=== PATIENT | female | born 1975 | race Caucasian/White ===

== ENCOUNTER 2016-07-10 00:39 | Emergency (ER) | payer OTHER ==
--- NOTE | 2016-07-10 03:03 | ED NURSING NOTES ---
Clinical Report - Nurses [facility] [address] [place] [address] 07/10/2016 0:38 Patient: BECKI SHIN TRIAGE Triage time 00:43. Acuity: LEVEL 2. Chief Complaint: CHEST PAIN. 00:54. Alert. SEPSIS SCREEN: Sepsis Screen. Negative (no infection suspected/documented). --00:59 Avel Rodriguez R.N. 00:43 07/10/16. BP: 146/67. HR: 82. RR: 16. O2 saturation: 100%. Temp: 98.3 F. Pain level now: 04/09. --00:59 Avel Rodriguez R.N. Weight: 49.8 kg stated. Height/Length: 64.5 inches Per Patient. BMI: 18.6. --00:47 Avel Rodriguez R.N. Medications Estradiol Oral (Tablet 2 mg) 1 tablet, daily. --00:44 Avel Rodriguez R.N. Loratadine Oral. --00:45 Avel Rodriguez R.N. Medication/allergy information source: the patient. --00:59 Avel Rodriguez R.N. Allergies No Known Drug Allergy. --00:45 Avel Rodriguez R.N. History Arrived by private vehicle. Historian: patient. Accompanied by spouse. Primary physician ([facility]). This started today. Onset. (about 0800). 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 PAST MEDICAL HX: Immunizations: up-to-date. Last normal menstrual period- 5-6 years ago. The patient has had a hysterectomy. SOCIAL HX: Never smoker. No alcohol use or drug use. No infectious disease exposure. ABUSE ASSESSMENT: No report of abuse. FALL RISK ASSESSMENT: Fall risk assessment completed. No fall risk identified. NUTRITIONAL RISK ASSESSMENT: The nutritional risk assessment revealed no deficiencies. FUNCTIONAL ASSESSMENT: Functional assessment: no impairments noted. LEARNING NEEDS ASSESSMENT: The learning needs assessment revealed no barriers. SKIN INTEGRITY ASSESSMENT: Skin integrity risk assessment completed. No skin integrity risk identified. --00:59 Avel Rodriguez R.N. PROBLEMS: SVT. UTI - Urinary Tract Infection. --00:46 Avel Rodriguez R.N. ADDITIONAL SURGERIES: Cardiac ablation . Hysterectomy. --00:46 Avel Rodriguez R.N. Interventions ID band on patient. To treatment room. --00:59 Avel Rodriguez R.N. PHYSICAL ASSESSMENT 00:44. Ambulatory to room. Patient gowned. GENERAL / NEURO / PSYCH: Alert. Oriented X 4. HEENT: Mucous membranes are pink. RESPIRATORY: Respirations not labored. SKIN: Skin is warm and dry. Normal skin turgor. --00:59 Avel Rodriguez R.N. NURSING PROGRESS NOTES 00:46. Head of bed elevated. Two patient identifiers checked. Call light placed in reach. Bed placed in lowest position. Brakes of bed on. Patient ready for evaluation- chart flagged. --00:49 Avel Rodriguez R.N. 00:49 07/10/2016 Aspirin PO 325 mg given. Allergies verified and confirmed 5 rights. --00:50 Avel Rodriguez R.N. 00:51. Oxygen administered by nasal cannula at 2 liters. --00:51 Avel Rodriguez R.N. 00:52. EKG time: (0052). EKG was performed by a tech and shown to the ED physician. --00:53 Avel Rodriguez R.N. 00:54 07/10/2016 Site #1 started via IV in the right antecubital space with an 20g angiocath, with aseptic technique and good blood return; one attempt. Blood drawn: rainbow set. Labeled in the presence of the patient and sent to the lab. Saline lock flushed with 10 mL saline. --00:58 Avel Rodriguez R.N. 01:28. Portable chest x-ray performed. --01:29 Avel Rodriguez R.N. 02:14 07/10/16. BP: 102/70. HR: 65. RR: 24. O2 saturation: 100%. Pain level now: 01/07. --02:16 Avel Rodriguez R.N. EKG time: (0302 AM). EKG was ordered, performed by a tech and shown to the ED physician. ( Repeat). --03:06 Aden Cardona R.N. 03:33. The patient is calm and resting quietly. RESPIRATORY: No respiratory distress. SKIN: Skin is warm and dry. Skin color within normal limits. --03:58 Avel Rodriguez R.N. DISPOSITION / DISCHARGE 03:31 07/10/2016 Site #1 removed upon discharge. Catheter intact. Bandage applied. --03:32 Avel Rodriguez R.N. Departure time: 03:36. Condition at departure: stable. No learning barriers present. Discharge instructions provided and reviewed with the patient and spouse. Patient and spouse verbalized understanding. Written instructions provided in Latvian. The patient was discharged home and accompanied by spouse. She left the Emergency Department ambulatory and via private vehicle. Spouse driving. FALL RISK ASSESSMENT: Fall risk assessment completed. No fall risk identified. --03:57 Avel Rodriguez R.N. 03:32 07/10/16. BP: 114/70. HR: 65. RR: 18. O2 saturation: 98% on room air. Pain level now: 09/07. --03:57 Avel Rodriguez R.N. Locked/Released at 07/10/2016 3:59 by Avel Rodriguez R.N.
--- NOTE | 2016-07-10 03:03 | ED ORDER SUMMARY ---
..... Patient: BECKI SHIN OrderSheet [facility] VisitID: [id number] [address] [place] [address] 41y, F Registration Date/Time: 07/10/2016 ORDER SHEET Weight: 49.8 kg (stated) Allergies: No Known Drug Allergy GENERAL ORDERS: Chest 1V Urgent (00:49 07/10/2016 JQuivey R.N. per protocol) (Ack 0:51 LMuller) (1:24 LMuller) Aircraft Instrument Engineer (Continuous) (CP) (00:50 07/10/2016 JQuivey R.N. per protocol) (Ack 0:51 LMuller) (0:55 JQuivey R.N.) Cardiac Panel Stat (00:50 07/10/2016 JQuivey R.N. per protocol) (Ack 0:51 LMuller) (0:58 JQuivey R.N.) UA-Culture if indicated Urgent (00:50 07/10/2016 JQuivey R.N. per protocol) (Ack 0:51 LMuller) Oxygen (2 L/min) (NC) (00:50 07/10/2016 JQuivey R.N. per protocol) (Ack 0:51 LMuller) (0:55 JQuivey R.N.) EKG - ER Stat (00:50 07/10/2016 JQuivey R.N. per protocol) (Ack 0:51 LMuller) (0:52 LMuller) Amylase Urgent (01:14 07/10/2016 Vivien RICHARDSON) (1:26 LMuller) Lipase Urgent (01:14 07/10/2016 Vivien RICHARDSON) (1:26 LMuller) D-Dimer Urgent (02:35 07/10/2016 Vivien RICHARDSON) (2:37 LMuller) MEDICATION ORDERS: Aspirin PO 325 mg (NOW) (00:50 07/10/2016 JQuivey R.N. per protocol) (0:50 JQuivey R.N.) IV FLUIDS: IV Saline Lock (00:50 07/10/2016 JQuivey R.N. per protocol) (0:58 JQuivey R.N.) ORDER SHEET NOTES: [Electronically signed by Avel Rodriguez R.N. (03:59 07/10/2016)] [Electronically signed by Rocky Piper MD (18:48 07/13/2016)] [Electronically locked/signed by Avel Rodriguez R.N. (03:59 07/10/2016)]
--- NOTE | 2016-07-10 03:03 | ED ORDER SUMMARY ---
..... Patient: BECKI SHIN OrderSheet [facility] VisitID: [id number] [address] [place] [address] 41y, F Registration Date/Time: 07/10/2016 ORDER SHEET Weight: 49.8 kg (stated) Allergies: No Known Drug Allergy GENERAL ORDERS: Chest 1V Urgent (00:49 07/10/2016 JQuivey R.N. 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 per protocol) (Ack 0:51 LMuller) (0:55 JQuivey R.N.) Cardiac Panel Stat (00:50 07/10/2016 JQuivey R.N. per protocol) (Ack 0:51 LMuller) (0:58 JQuivey R.N.) UA-Culture if indicated Urgent (00:50 07/10/2016 JQuivey R.N. per protocol) (Ack 0:51 LMuller) Oxygen (2 L/min) (NC) (00:50 07/10/2016 JQuivey R.N. per protocol) (Ack 0:51 LMuller) (0:55 JQuivey R.N.) EKG - ER Stat (00:50 07/10/2016 JQuivey R.N. per protocol) (Ack 0:51 LMuller) (0:52 LMuller) Amylase Urgent (01:14 07/10/2016 Vivien RICHARDSON) (1:26 LMuller) Lipase Urgent (01:14 07/10/2016 Vivien RICHARDSON) (1:26 LMuller) D-Dimer Urgent (02:35 07/10/2016 Vivien RICHARDSON) (2:37 LMuller) MEDICATION ORDERS: Aspirin PO 325 mg (NOW) (00:50 07/10/2016 JQuivey R.N. per protocol) (0:50 JQuivey R.N.) IV FLUIDS: IV Saline Lock (00:50 07/10/2016 JQuivey R.N. per protocol) (0:58 JQuivey R.N.) ORDER SHEET NOTES: [Electronically signed by Avel Rodriguez R.N. (03:59 07/10/2016)] [Electronically signed by Rocky Piper MD (18:48 07/13/2016)] [Electronically locked/signed by Avel Rodriguez R.N. (03:59 07/10/2016)]
--- NOTE | 2016-07-10 03:03 | ED CLINICAL REPORT ---
Clinical Report - Physicians/Mid Levels [facility] [address] [place] [address] 07/10/2016 0:38 Patient: BECKI SHIN Time Seen: 01:06. Arrived- By private vehicle. Historian- patient. HISTORY OF PRESENT ILLNESS Chief Complaint: CHEST PAIN. At its maximum, severity described as 5 / 10. When seen in the E.D., severity described as 3 / 10. This started yesterday at about 8 AM and is still present. It was abrupt in onset and has been constant and waxing/waning. Onset during light activity. It is described as dull, sharp and "pain" and it is described as located in the central chest area and radiating to the neck and upper back. The patient has had nausea. No vomiting or diaphoresis. Similar symptoms previously: None. REVIEW OF SYSTEMS No chills, fever, muscle aches, sweats or calf pain. No pedal edema, constipation or urinary problems. She has had a mild nonproductive cough. She has had palpitations and mild, intermittent abdominal pain. The pain is described as located in the epigastrium and radiating to the back. She has had diarrhea (several days ago). she reports that mild elevations of her lipase have been noted in the past. All systems otherwise negative, except as recorded above. PAST HISTORY PCP - [facility] in [place]. SOCIAL HISTORY Never smoker. No alcohol use or drug use. Is a local resident. Has good social support. FAMILY HISTORY Heart disease in grandparent; aortic aneurysm in first-degree relative (father); cancer in first-degree relative (mother) and grandparent. ADDITIONAL NOTES The nursing notes have been reviewed. PHYSICAL EXAM Vital Signs: 07/10/2016 00:43 BP: 146/67. HR: 82. RR: 16. O2 saturation: 100%. Temp: 98.3 F. Pain level now: 10/10. Appearance: Alert. Eyes: Pupils equal, round and reactive to light. ENT: Pharynx normal. Neck: Normal inspection. Neck supple. CVS: Normal heart rate and rhythm. Heart sounds normal. Respiratory: No respiratory distress. Chest pain reproducible with palpation of the costochondral junction and with deep breathing. Breath sounds normal. Abdomen: Soft and nontender. Bowel sounds normal. No organomegaly. No mass. Back: Normal external inspection. No CVA tenderness. Skin: Skin warm and dry. Normal skin color. Normal skin turgor. Extremities: Extremities exhibit normal ROM. No calf tenderness. No lower extremity edema. LABS, X-RAYS, AND EKG EKG: Rate: 53. Ectopic beats. Premature atrial contractions. The study has been independently viewed by me. Chest X-ray: No acute disease. The X-rays were independently viewed by me. Laboratory Tests: CBC w Diff: (KACEY: 07/10/2016 00:50) ( MsgRcvd 07/10/2016 01:06) Final results Test Result Flag Units (Reference) WHITE BLOOD COUNT 6.7 K/uL (4.5-11.5) RED BLOOD COUNT 4.66 M/uL (4.00-5.20) HEMOGLOBIN 14.0 gm/dL (12.0-16.0) HEMATOCRIT 42.2 % (36.0-46.0) MEAN CELL VOLUME 91 fL (80-100) MEAN CORPUSCULAR HGB 30 pg (26-34) MEAN CORPUSCULAR HGB CONC 33 g/dL (31-37) RED CELL DISTRIBUTION WIDTH 12.1 % (11.6-14.8) PLATELET COUNT 201 K/uL (150-400) NEUTROPHIL % 53.6 % (50-75) LYMPH % 35.5 % (25-40) MONO % 7.0 % (3-14) EOSINOPHIL % 3.5 % (0-4) BASOPHIL % 0.4 % (0-2) [id number]: (KACEY: 07/10/2016 00:50) ( MsgRcvd 07/10/2016 02:45) Final results Test Result Flag Units (Reference) D-DIMER QUANTITATIVE 0.33 ug/mLFEU (0.27-0.52) The primary value of this quantitative assay relates toits negative predictive value (i.e. exclusion) of pulmonaryembolism/deep vein thrombosis/DIC.Elevated levels of d-dimer may also occur with:, age, cancer, inflammation, liver disease,post-op, infection, hematoma, coronary disease, peripheralarteriopathy, bleeding disorders and thrombolytic treatment.Results should be correlated with other clinical andradiological data.Testing Methodology: Latex Immunoassay Lipase: (KACEY: 07/10/2016 00:50) ( [facility] [place] 07/10/2016 01:26) Final results Test Result Flag Units (Reference) LIPASE 475 H U/L (73-393) AMYLASE 98 U/L (25-115) CHEM 13 PANEL: (KACEY: 07/10/2016 00:50) ( [facility] [place] 07/10/2016 01:27) Final results Test Result Flag Units (Reference) GLUCOSE 103 mg/dL (70-110) BUN 14 mg/dL (7-18) CREATININE 0.9 mg/dL (0.6-1.3) Estimated GFR >60 mL/min Estimated GFR- >60 mL/min Note: Persistent reduction over 3 months in eGFR<60 mL/min/1.73 m2 defines CKD. Patients with eGFR values>=60 mL/min/1.73 m2 may also have CKD if evidence ofpersistent proteinuria. Additional information may be foundat www.kidney.org. SODIUM 143 mmol/L (136-145) POTASSIUM 3.4 L mmol/L (3.5-5.1) CHLORIDE 105 mmol/L (98-107) CARBON DIOXIDE 30 mmol/L (21-32) CALCIUM 9.0 mg/dL (8.5-10.1) TOTAL PROTEIN 6.5 g/dL (6.4-8.2) ALBUMIN 3.4 g/dL (3.3-5.0) BILIRUBIN, TOTAL 0.5 mg/dL (0.0-1.0) ALKALINE PHOSPHATASE 60 U/L (46-116) AST (SGOT) 15 U/L (15-37) ALT (SGPT) 21 U/L (12-78) MAGNESIUM 1.7 L mg/dL (1.8-2.4) CPK 51 U/L (24-260) TROPONIN I <0.05 ng/mL (0.00-1.5) TROPONIN REFERENCE RANGE:<0.1 NEGATIVE0.1-1.5 INDETERMINANT>1.5 POSITIVE . PROGRESS AND PROCEDURES Course of Care: Patient is stable. Patient/family counseled. Old medical records reviewed. Disposition: Discharged. Condition: stable. CLINICAL IMPRESSION Atypical chest pain Possible costochondritis INSTRUCTIONS No strenuous activity. Warnings: Further evaluation is necessary. GENERAL WARNINGS: Return or contact your physician immediately if your condition worsens or changes unexpectedly, if not improving as expected, or if other problems arise. Your Current Medications: CONTINUE TAKING THE FOLLOWING MEDICATIONS: Estradiol Oral : Tablet 2 mg, 1 tablet daily. Loratadine Oral. Follow-up: Follow up with your doctor tomorrow. Call for the next available appointment. Understanding of the discharge instructions verbalized by patient. (Electronically signed by Rocky Piper MD 07/13/2016 18:48)
--- NOTE | 2016-07-10 03:03 | ED NURSING NOTES ---
Clinical Report - Nurses [facility] [address] [place] [address] 07/10/2016 0:38 Patient: BECKI SHIN TRIAGE Triage time 00:43. Acuity: LEVEL 2. Chief Complaint: CHEST PAIN. 00:54. Alert. SEPSIS SCREEN: Sepsis Screen. Negative (no infection suspected/documented). --00:59 Avel Rodriguez R.N. 00:43 07/10/16. BP: 146/67. HR: 82. RR: 16. O2 saturation: 100%. Temp: 98.3 F. Pain level now: 04/09. --00:59 Avel Rodriguez R.N. Weight: 49.8 kg stated. Height/Length: 64.5 inches Per Patient. BMI: 18.6. --00:47 Avel Rodriguez R.N. Medications Estradiol Oral (Tablet 2 mg) 1 tablet, daily. --00:44 Avel Rodriguez R.N. Loratadine Oral. --00:45 Avel Rodriguez R.N. Medication/allergy information source: the patient. --00:59 Avel Rodriguez R.N. Allergies No Known Drug Allergy. --00:45 Avel Rodriguez R.N. History Arrived by private vehicle. Historian: patient. Accompanied by spouse. Primary physician ([facility]). This started today. Onset. (about 0800). 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 PAST MEDICAL HX: Immunizations: up-to-date. Last normal menstrual period- 5-6 years ago. The patient has had a hysterectomy. SOCIAL HX: Never smoker. No alcohol use or drug use. No infectious disease exposure. ABUSE ASSESSMENT: No report of abuse. FALL RISK ASSESSMENT: Fall risk assessment completed. No fall risk identified. NUTRITIONAL RISK ASSESSMENT: The nutritional risk assessment revealed no deficiencies. FUNCTIONAL ASSESSMENT: Functional assessment: no impairments noted. LEARNING NEEDS ASSESSMENT: The learning needs assessment revealed no barriers. SKIN INTEGRITY ASSESSMENT: Skin integrity risk assessment completed. No skin integrity risk identified. --00:59 Avel Rodriguez R.N. PROBLEMS: SVT. UTI - Urinary Tract Infection. --00:46 Avel Rodriguez R.N. ADDITIONAL SURGERIES: Cardiac ablation . Hysterectomy. --00:46 Avel Rodriguez R.N. Interventions ID band on patient. To treatment room. --00:59 Avel Rodriguez R.N. PHYSICAL ASSESSMENT 00:44. Ambulatory to room. Patient gowned. GENERAL / NEURO / PSYCH: Alert. Oriented X 4. HEENT: Mucous membranes are pink. RESPIRATORY: Respirations not labored. SKIN: Skin is warm and dry. Normal skin turgor. --00:59 Avel Rodriguez R.N. NURSING PROGRESS NOTES 00:46. Head of bed elevated. Two patient identifiers checked. Call light placed in reach. Bed placed in lowest position. Brakes of bed on. Patient ready for evaluation- chart flagged. --00:49 Avel Rodriguez R.N. 00:49 07/10/2016 Aspirin PO 325 mg given. Allergies verified and confirmed 5 rights. --00:50 Avel Rodriguez R.N. 00:51. Oxygen administered by nasal cannula at 2 liters. --00:51 Avel Rodriguez R.N. 00:52. EKG time: (0052). EKG was performed by a tech and shown to the ED physician. --00:53 Avel Rodriguez R.N. 00:54 07/10/2016 Site #1 started via IV in the right antecubital space with an 20g angiocath, with aseptic technique and good blood return; one attempt. Blood drawn: rainbow set. Labeled in the presence of the patient and sent to the lab. Saline lock flushed with 10 mL saline. --00:58 Avel Rodriguez R.N. 01:28. Portable chest x-ray performed. --01:29 Avel Rodriguez R.N. 02:14 07/10/16. BP: 102/70. HR: 65. RR: 24. O2 saturation: 100%. Pain level now: 01/07. --02:16 Avel Rodriguez R.N. EKG time: (0302 AM). EKG was ordered, performed by a tech and shown to the ED physician. ( Repeat). --03:06 Aden Cardona R.N. 03:33. The patient is calm and resting quietly. RESPIRATORY: No respiratory distress. SKIN: Skin is warm and dry. Skin color within normal limits. --03:58 Avel Rodriguez R.N. DISPOSITION / DISCHARGE 03:31 07/10/2016 Site #1 removed upon discharge. Catheter intact. Bandage applied. --03:32 Avel Rodriguez R.N. Departure time: 03:36. Condition at departure: stable. No learning barriers present. Discharge instructions provided and reviewed with the patient and spouse. Patient and spouse verbalized understanding. Written instructions provided in Azeri. The patient was discharged home and accompanied by spouse. She left the Emergency Department ambulatory and via private vehicle. Spouse driving. FALL RISK ASSESSMENT: Fall risk assessment completed. No fall risk identified. --03:57 Avel Rodriguez R.N. 03:32 07/10/16. BP: 114/70. HR: 65. RR: 18. O2 saturation: 98% on room air. Pain level now: 09/07. --03:57 Avel Rodriguez R.N. Locked/Released at 07/10/2016 3:59 by Avel Rodriguez R.N.
--- NOTE | 2016-07-10 03:03 | ED CLINICAL REPORT ---
Clinical Report - Physicians/Mid Levels [facility] [address] [place] [address] 07/10/2016 0:38 Patient: BECKI SHIN Time Seen: 01:06. Arrived- By private vehicle. Historian- patient. HISTORY OF PRESENT ILLNESS Chief Complaint: CHEST PAIN. At its maximum, severity described as 5 / 10. When seen in the E.D., severity described as 3 / 10. This started yesterday at about 8 AM and is still present. It was abrupt in onset and has been constant and waxing/waning. Onset during light activity. It is described as dull, sharp and "pain" and it is described as located in the central chest area and radiating to the neck and upper back. The patient has had nausea. No vomiting or diaphoresis. Similar symptoms previously: None. REVIEW OF SYSTEMS No chills, fever, muscle aches, sweats or calf pain. No pedal edema, constipation or urinary problems. She has had a mild nonproductive cough. She has had palpitations and mild, intermittent abdominal pain. The pain is described as located in the epigastrium and radiating to the back. She has had diarrhea (several days ago). she reports that mild elevations of her lipase have been noted in the past. All systems otherwise negative, except as recorded above. PAST HISTORY PCP - [facility] in [place]. SOCIAL HISTORY Never smoker. No alcohol use or drug use. Is a local resident. Has good social support. FAMILY HISTORY Heart disease in grandparent; aortic aneurysm in first-degree relative (father); cancer in first-degree relative (mother) and grandparent. ADDITIONAL NOTES The nursing notes have been reviewed. PHYSICAL EXAM Vital Signs: 07/10/2016 00:43 BP: 146/67. HR: 82. RR: 16. O2 saturation: 100%. Temp: 98.3 F. Pain level now: 10/10. Appearance: Alert. Eyes: Pupils equal, round and reactive to light. ENT: Pharynx normal. Neck: Normal inspection. Neck supple. CVS: Normal heart rate and rhythm. Heart sounds normal. Respiratory: No respiratory distress. Chest pain reproducible with palpation of the costochondral junction and with deep breathing. Breath sounds normal. Abdomen: Soft and nontender. Bowel sounds normal. No organomegaly. No mass. Back: Normal external inspection. No CVA tenderness. Skin: Skin warm and dry. Normal skin color. Normal skin turgor. Extremities: Extremities exhibit normal ROM. No calf tenderness. No lower extremity edema. LABS, X-RAYS, AND EKG EKG: Rate: 53. Ectopic beats. Premature atrial contractions. The study has been independently viewed by me. Chest X-ray: No acute disease. The X-rays were independently viewed by me. Laboratory Tests: CBC w Diff: (KCAEY: 07/10/2016 00:50) ( MsgRcvd 07/10/2016 01:06) Final results Test Result Flag Units (Reference) WHITE BLOOD COUNT 6.7 K/uL (4.5-11.5) RED BLOOD COUNT 4.66 M/uL (4.00-5.20) HEMOGLOBIN 14.0 gm/dL (12.0-16.0) HEMATOCRIT 42.2 % (36.0-46.0) MEAN CELL VOLUME 91 fL (80-100) MEAN CORPUSCULAR HGB 30 pg (26-34) MEAN CORPUSCULAR HGB CONC 33 g/dL (31-37) RED CELL DISTRIBUTION WIDTH 12.1 % (11.6-14.8) PLATELET COUNT 201 K/uL (150-400) NEUTROPHIL % 53.6 % (50-75) LYMPH % 35.5 % (25-40) MONO % 7.0 % (3-14) EOSINOPHIL % 3.5 % (0-4) BASOPHIL % 0.4 % (0-2) [id number]: (KACEY: 07/10/2016 00:50) ( MsgRcvd 07/10/2016 02:45) Final results Test Result Flag Units (Reference) D-DIMER QUANTITATIVE 0.33 ug/mLFEU (0.27-0.52) The primary value of this quantitative assay relates toits negative predictive value (i.e. exclusion) of pulmonaryembolism/deep vein thrombosis/DIC.Elevated levels of d-dimer may also occur with:, age, cancer, inflammation, liver disease,post-op, infection, hematoma, coronary disease, peripheralarteriopathy, bleeding disorders and thrombolytic treatment.Results should be correlated with other clinical andradiological data.Testing Methodology: Latex Immunoassay Lipase: (KACEY: 07/10/2016 00:50) ( [facility] [place] 07/10/2016 01:26) Final results Test Result Flag Units (Reference) LIPASE 475 H U/L (73-393) AMYLASE 98 U/L (25-115) CHEM 13 PANEL: (KACEY: 07/10/2016 00:50) ( [facility] 07/10/2016 01:27) Final results Test Result Flag Units (Reference) GLUCOSE 103 mg/dL (70-110) BUN 14 mg/dL (7-18) CREATININE 0.9 mg/dL (0.6-1.3) Estimated GFR >60 mL/min Estimated GFR- >60 mL/min Note: Persistent reduction over 3 months in eGFR<60 mL/min/1.73 m2 defines CKD. Patients with eGFR values>=60 mL/min/1.73 m2 may also have CKD if evidence ofpersistent proteinuria. Additional information may be foundat www.kidney.org. SODIUM 143 mmol/L (136-145) POTASSIUM 3.4 L mmol/L (3.5-5.1) CHLORIDE 105 mmol/L (98-107) CARBON DIOXIDE 30 mmol/L (21-32) CALCIUM 9.0 mg/dL (8.5-10.1) TOTAL PROTEIN 6.5 g/dL (6.4-8.2) ALBUMIN 3.4 g/dL (3.3-5.0) BILIRUBIN, TOTAL 0.5 mg/dL (0.0-1.0) ALKALINE PHOSPHATASE 60 U/L (46-116) AST (SGOT) 15 U/L (15-37) ALT (SGPT) 21 U/L (12-78) MAGNESIUM 1.7 L mg/dL (1.8-2.4) CPK 51 U/L (24-260) TROPONIN I <0.05 ng/mL (0.00-1.5) TROPONIN REFERENCE RANGE:<0.1 NEGATIVE0.1-1.5 INDETERMINANT>1.5 POSITIVE . PROGRESS AND PROCEDURES Course of Care: Patient is stable. Patient/family counseled. Old medical records reviewed. Disposition: Discharged. Condition: stable. CLINICAL IMPRESSION Atypical chest pain Possible costochondritis INSTRUCTIONS No strenuous activity. Warnings: Further evaluation is necessary. GENERAL WARNINGS: Return or contact your physician immediately if your condition worsens or changes unexpectedly, if not improving as expected, or if other problems arise. Your Current Medications: CONTINUE TAKING THE FOLLOWING MEDICATIONS: Estradiol Oral : Tablet 2 mg, 1 tablet daily. Loratadine Oral. Follow-up: Follow up with your doctor tomorrow. Call for the next available appointment. Understanding of the discharge instructions verbalized by patient. (Electronically signed by Rocky Piper MD 07/13/2016 18:48)
--- NOTE | 2016-07-10 07:15 | DIAGNOSTIC IMAGING REPORT ---
PROCEDURE: XR CHEST 1 VIEW INDICATION: CHEST PAIN TECHNIQUE: Portable AP view (0125 hours). COMPARISON: None. FINDINGS: Lungs are clear. Heart and mediastinum are normal. Thorax is normal. IMPRESSION: 1. Negative chest.
--- NOTE | 2016-07-13 18:48 | ED DISCHARGE INSTRUCTIONS ---
Patient: BECKI SHIN General Instructions [facility] VisitID: [id number] [address] [place] [address] 41y, F Registration Date/Time: 07/10/2016 Atypical chest pain INSTRUCTIONS No strenuous activity. Warnings: Further evaluation is necessary. GENERAL WARNINGS: Return or contact your physician immediately if your condition worsens or changes unexpectedly, if not improving as expected, or if other problems arise. Your Current Medications: CONTINUE TAKING THE FOLLOWING MEDICATIONS: Estradiol Oral : Tablet 2 mg, 1 tablet daily. Loratadine Oral. Follow-up: Follow up with your doctor tomorrow. Call for the next available appointment. Understanding of the discharge instructions verbalized by patient. ADDITIONAL INFORMATION Chest Pain, Uncertain Cause Chest pain can happen for a number of reasons. Sometimes the cause can not be determined. If yourcondition does not seem serious, and your pain does not appear to be coming from your heart, your doctor may recommend watching it closely. Sometimes the signs of a serious problem take more time to appear. Therefore, watch for the warning signs listed below. Home care After your visit, follow these recommendations: Rest today and avoid strenuous activity. Take any prescribed medicine as directed. Follow-up care Follow up with your doctor or this facility as instructed or if you do not start to feel better within 24 hours. Call 911 Get immediate medical attention if any of the following occur: A change in the type of pain: if it feels different, becomes more severe, lasts longer, or begins to spread into your shoulder, arm, neck, jaw or back Shortness of breath or increased pain with breathing Weakness, dizziness, or fainting Rapid heart beat Get prompt medical attention Call your doctor right away if any of the following occur: Cough with dark colored sputum (phlegm) or blood Fever of 100.4F(38C) or higher, or as directed by your health care provider Swelling, pain or redness in one leg Chest Wall Pain: Costochondritis The chest pain that you have had today is caused by Costochondritis. This condition is due to an inflammation of the cartilage joining the ribs to the breastbone. It is not caused by heart or lung problems. Although the exact cause for costochondritis is not known, it often occurs during times of emotional stress. It can be painful, but it is not dangerous. It usually disappears within one to two weeks, but may recur. Rarely, a more serious condition may cause symptoms similar to costochondritis; therefore, watch for the warning signs listed below. Home Care: If you feel that emotional stress is a cause of your condition, try to identify sources of that stress. It may not be obvious! Learn ways to deal with the stress in your life such as regular exercise, muscle relaxation, meditation, or simply taking time out for yourself. For more information about this, consult your doctor or go to a local bookstore and review books and tapes available on the subject of stress reduction. You may use acetaminophen (Tylenol) or ibuprofen (Motrin, Advil) to control pain, unless another pain medicine was prescribed. [ NOTE: If you have liver disease or ever had a stomach ulcer, talk with your doctor before using these medicines.] The use of heat (hot wet compress or heating pad) with or without local analgesic creams (Deep Heat Rub, Jimi Broussard) will be helpful to reduce pain. Follow Up with your doctor as directed or sooner if you do not start to improve within the next two days. Get Prompt Medical Attention if any of the following occur: A change in the type of pain: if it feels different, becomes more severe, lasts longer, or spreads into your shoulder, arm, neck, jaw or back Shortness of breath or increased pain with breathing Weakness, dizziness, or fainting Cough with dark colored sputum (phlegm) or blood Abdominal pain Dark red or black stools Fever of 100.4F (38C) or higher, or as directed by your healthcare provider You have been given the following additional information: Chest Pain, Uncertain Cause Chest Wall Pain, Costochondritis No strenuous activity. (Electronically signed by Rocky Piper MD 07/13/2016 18:48)
--- NOTE | 2016-07-13 18:48 | ED MED RECONCILIATION SUMMARY ---
Patient: ANGELINE SHINNIFER Allyson Medication Reconciliation Report [facility] VisitID: [id number] [address] [place] [address] 41y, F Registration Date/Time: 07/10/2016 Weight: 49.8 kg Height/Length: (not available) BMI: 18.6 ALLERGIES: No Known Drug Allergy The patient's Home Medications are listed below: CONTINUE TAKING THE FOLLOWING MEDICATIONS: Estradiol Oral (2 mg) 1 tablet, daily Loratadine Oral The source(s) of the original Home Medication information: patient The following Medications were given to the patient in the Emergency Department: Aspirin [PO] PO 325 mg, administered: 07/10/2016 12:49:00 AM The following Medications were prescribed to the patient: None.
--- NOTE | 2016-07-13 18:48 | ED MAR SUMMARY ---
..... Medication Administration Record [facility] [address] [place] [address] Patient: BECKI SHIN Visit ID: [id number] 41y, F Weight: 49.8 kg Height/Length: 64.5 in BMI: 18.6 ALLERGIES: No Known Drug Allergy Given 00:49 07/10/2016 Avel Rodriguez RKetanNKetan Medication Administered: ASPIRIN [PO], Dose: 325 mg PO. Medication Ordered: Aspirin PO 325 mg (NOW).
--- NOTE | 2016-07-13 18:48 | ED MAR SUMMARY ---
..... Medication Administration Record [facility] [address] [place] [address] Patient: BECKI SHIN Visit ID: [id number] 41y, F Weight: 49.8 kg Height/Length: 64.5 in BMI: 18.6 ALLERGIES: No Known Drug Allergy Given 00:49 07/10/2016 Avel Rodriguez RKetanNKetan Medication Administered: ASPIRIN [PO], Dose: 325 mg PO. Medication Ordered: Aspirin PO 325 mg (NOW).
--- NOTE | 2016-07-13 18:48 | ED MED RECONCILIATION SUMMARY ---
Patient: ANGELINE SHINNIFER Allyson Medication Reconciliation Report [facility] VisitID: [id number] [address] [place] [address] 41y, F Registration Date/Time: 07/10/2016 Weight: 49.8 kg Height/Length: (not available) BMI: 18.6 ALLERGIES: No Known Drug Allergy The patient's Home Medications are listed below: CONTINUE TAKING THE FOLLOWING MEDICATIONS: Estradiol Oral (2 mg) 1 tablet, daily Loratadine Oral The source(s) of the original Home Medication information: patient The following Medications were given to the patient in the Emergency Department: Aspirin [PO] PO 325 mg, administered: 07/10/2016 12:49:00 AM The following Medications were prescribed to the patient: None.
== END 2016-07-10 03:37 | disposition home or self-care (01) ==
LOC: ED SRH 00:39
DX: R07.89 Other chest pain (principal); Z82.49 Family history of ischemic heart disease and other diseases of the circulatory system
CPT/HCPCS: 90100; 90616; 91556; 92235; 92530; 92610; 92720; 95059

== ENCOUNTER 2016-11-07 14:16 | Emergency (ER) | payer OTHER ==
--- NOTE | 2016-11-07 14:53 | ED ORDER SUMMARY ---
..... Patient: BECKI SHIN OrderSheet [facility] VisitID: [id number] [address] [place] [address] 41y, F Registration Date/Time: 11/07/2016 ORDER SHEET Weight: 50.8 kg (stated) Allergies: No Known Drug Allergy GENERAL ORDERS: MEDICATION ORDERS: Toradol IM 60 mg (NOW) (14:36 11/07/2016 HBivens A.R.N.P.) (Ack 14:43 SStone R.N.) (14:58 SStone R.N.) Benadryl IM 50 mg (NOW) (14:36 11/07/2016 HBivens A.R.N.P.) (Ack 14:43 SStone R.N.) (14:58 SStone R.N.) - (Reglan 10mg im stat) (14:36 11/07/2016 HBivens A.R.N.P.) (Ack 14:43 SStone R.N.) (14:59 SStone R.N.) IV FLUIDS: ORDER SHEET NOTES: [Electronically signed by Jazmin Sanabria R.N. (15:12 11/07/2016)] [Electronically signed by Magnolia Prieto A.R.N.P. (19:11 11/07/2016)] [Electronically locked/signed by Jazmin Sanabria R.N. (15:12 11/07/2016)]
--- NOTE | 2016-11-07 14:53 | ED CLINICAL REPORT ---
Clinical Report - Physicians/Mid Levels [facility] [address] [place] [address] 11/07/2016 14:17 Patient: BECKI SHIN Time Seen: 14:26; initial patient contact, initial documentation, patient care assumed. Arrived- By private vehicle. Historian- patient. HISTORY OF PRESENT ILLNESS Chief Complaint: HEADACHE. This started about 2 days ago. It is described as similar to previous headaches and "pain". Located in the frontal, left hemicranial, left parietal and left temporal region and region of the left eye. Has had neck pain. At its maximum, severity described as moderate. When seen in the E.D., severity described as moderate. Modifying factors: worsened by bright light; relieved by nothing. The patient has had photophobia, nausea and vomiting. No preceding symptoms, blurred vision, numbness or weakness. No recent travel. Similar symptoms previously: Frequently, as bad. Recent medical care: The patient was seen recently in a clinic. ( dx with uti x2 days ago, started on bactrim). REVIEW OF SYSTEMS No fever, sinus pressure, ear pain, sore throat or head injury. No chest pain or difficulty breathing. All systems otherwise negative, except as recorded above. PAST HISTORY See nurses notes. PROBLEMS: Migraines. --14:27 Jazmin Sanabria R.N. SOCIAL HISTORY Never smoker. Occasional alcohol use. No drug use. No recent travel. Is a local resident. She lives with spouse. FAMILY HISTORY Negative. ADDITIONAL NOTES The nursing notes have been reviewed with agreement regarding the chief complaint, HPI, ROS, PMH and patient medications and allergies. PHYSICAL EXAM Vital Signs: 11/07/2016 14:24 BP: 123/74. HR: 83. RR: 22. O2 saturation: 95%. Temp: 98.7 F. Pain level now: 8/10. Have been reviewed as normal and appear to be correct. Appearance: Alert. No acute distress. Eyes: Pupils equal, round and reactive to light. Eyes normal inspection. ENT: Ears normal. Nose normal. Pharynx normal. Neck: Normal inspection. Neck supple. CVS: Normal heart rate and rhythm. Heart sounds normal. Pulses normal. Respiratory: No respiratory distress. Breath sounds normal. Back: Normal inspection. Skin: Skin warm and dry. Normal skin color. No rash. Normal skin turgor. Extremities: Extremities exhibit normal ROM. No lower extremity edema. Neuro: Oriented X 3. Alert. Mood/affect normal. Speech normal. Cranial nerves normal (as tested). No cerebellar findings. No motor deficit. No sensory deficit. PROGRESS AND PROCEDURES Course of Care: 14:55 11/07/16. nurse now telling me, pt thinks bactrim sparked her maldonado, and would like different abx for her ut. Patient counseled in person regarding the patient's stable condition and diagnosis. Differential Diagnosis: I considered migraine, cluster headache, subarachnoid hemorrhage, intracranial bleed, vascular malformation, cerebral aneurysm, vascular dissection, vasculitis, temporal arteritis, influenza, viral syndrome, analgesic abuse, hypoglycemia and trigeminal neuralgia as a possible cause of headache in this patient. This is a partial list of diagnoses considered. Above considerations are based on history and physical exam. Differential diagnosis was discussed with patient. Disposition: Discharged home in good and improved condition (14:52). Condition: good and stable. CLINICAL IMPRESSION Acute, poorly controlled migraine headache. INSTRUCTIONS Warnings: GENERAL WARNINGS: Return or contact your physician immediately if your condition worsens or changes unexpectedly, if not improving as expected, or if other problems arise. SPECIFICALLY, return if you develop fever, vomiting, numbness, weakness, difficulty thinking, visual disturbances, fainting or extreme fatigue. Prescription Medications: Zofran 4 mg: Take 1 orally every six hours as needed for nausea/vomiting. Dispense ten (10). No refills. Substitution is permissible. Fioricet: Take 1-2 orally every 4 hours as needed for headache. Dispense twenty (20). No refills. Substitution is permissible. Macrobid 100 mg: Take 1 capsule orally every 12 hours for 7 days. No refills. Substitution is permissible. Follow-up: Follow up with your doctor in about two days even if well. Call for an appointment. Summary of care provided to patient. Understanding of the discharge instructions verbalized by patient. (Electronically signed by Magnolia Prieto A.R.N.P. 11/07/2016 19:11)
--- NOTE | 2016-11-07 14:53 | ED ORDER SUMMARY ---
..... Patient: BECKI SHIN OrderSheet [facility] VisitID: [id number] [address] [place] [address] 41y, F Registration Date/Time: 11/07/2016 ORDER SHEET Weight: 50.8 kg (stated) Allergies: No Known Drug Allergy GENERAL ORDERS: MEDICATION ORDERS: Toradol IM 60 mg (NOW) (14:36 11/07/2016 HBivens A.R.N.P.) (Ack 14:43 SStone R.N.) (14:58 SStone R.N.) Benadryl IM 50 mg (NOW) (14:36 11/07/2016 HBivens A.R.N.P.) (Ack 14:43 SStone R.N.) (14:58 SStone R.N.) - (Reglan 10mg im stat) (14:36 11/07/2016 HBivens A.R.N.P.) (Ack 14:43 SStone R.N.) (14:59 SStone R.N.) IV FLUIDS: ORDER SHEET NOTES: [Electronically signed by Jazmin Sanabria R.N. (15:12 11/07/2016)] [Electronically signed by Magnolia Prieto A.R.N.P. (19:11 11/07/2016)] [Electronically locked/signed by Jazmin Sanabria R.N. (15:12 11/07/2016)]
--- NOTE | 2016-11-07 14:53 | ED NURSING NOTES ---
Clinical Report - Nurses [facility] [address] [place] [address] 11/07/2016 14:17 Patient: BECKI SHIN TRIAGE Triage time 14:25. Acuity: LEVEL 3. Chief Complaint: HEADACHE. --14:30 Jazmin Sanabria R.N. 14:24 11/07/16. BP: 123/74 taken on the right arm, while lying. HR: 83. RR: 22. O2 saturation: 95%. Temp: 98.7 F. Pain level now: 02/07. --14:30 Jazmin Sanabria R.N. Weight: 50.8 kg stated. Height/Length: 64 inches Per Patient. BMI: 19.2. --14:28 Jazmin Sanabria R.N. Medications Bactrim DS Oral. --14:27 Jazmin Sanabria R.N. Pyridium Oral. --14:27 Jazmin Sanabria R.N. Estradiol 2 mg q.d. . --14:27 Jazmin Sanabria R.N. Loratadine Oral. --14:27 Jazmin Sanabria R.N. Allergies No Known Drug Allergy. --15:12 Jazmin Sanabria R.N. History Arrived by private vehicle. Historian: patient. Primary physician (Becki Metzger). This started 2 days ago. She has had nausea, vomiting, nausea, vomiting and neck pain. She has had photophobia. ( Pt reports recent Dx of UTI and has been on Bactrim for 2 days.). No fever or blurred vision. SURGERY HX: Had hysterectomy. SOCIAL HX: Never smoker. No alcohol use or drug use. No infectious disease exposure. No known contact with a sick individual. --14:30 Jazmin Sanabria R.N. PROBLEMS: Migraines. --14:27 Jazmin Sanabria R.N. Interventions ID band on patient. --14:30 Jazmin Sanabria R.N. PHYSICAL ASSESSMENT ( Pt. reports her UTI symptoms are better, but not resolved completely.). GENERAL / NEURO / PSYCH: Alert. Oriented X 4. Appears in no acute distress. Speech within normal limits. HEENT: No facial asymmetry noted. Pupils equal, round and reactive to light. RESPIRATORY: Respirations not labored. GI / : Abdomen soft and nontender. SKIN: Skin is warm and dry. --14:31 Jazmin Sanabria R.N. NURSING PROGRESS NOTES Head of bed elevated. Reassurance given. Lights dimmed. Patient identifiers checked. Call light placed in reach. Patient waiting for evaluation. --14:31 Jazmin Sanabria R.N. 14:58 11/07/2016 Toradol (Ketorolac Tromethamine) IM 60 mg given. Given in the right gluteus mane. Allergies verified and confirmed 5 rights. --14:58 Jazmin Sanabria R.N. 14:58 11/07/2016 Benadryl (DiphenhydrAMINE HCl) IM 50 mg given. Given in the right gluteus mane. Allergies verified, confirmed 5 rights and sedative warning given to the patient and patient's family. --14:58 Jazmin Sanabria R.N. 14:59 11/07/2016 Reglan (Metoclopramide HCl) IM 10 mg given. Given in the left deltoid. Allergies verified and confirmed 5 rights. --14:59 Jazmin Sanabria R.N. ( Pt. tolerated IM medications well. Will wait 15 minutes before DC to ensure no med rxn). --14:59 Jazmin Sanabria R.N. DISPOSITION / DISCHARGE No learning barriers present. Discharge instructions provided and reviewed with the patient and spouse. Reviewed warnings (not to drive while taking sedating medications). Treatments reviewed. Patient and spouse verbalized understanding. Written instructions provided in Turkish. The patient was discharged by the physician back office medical assistant. She was discharged home and accompanied by spouse. She left the Emergency Department ambulatory and via private vehicle. Spouse driving. --15:12 Jazmin Sanabria R.N. 15:11 11/07/16. BP: 123/74. HR: 83. RR: 22. O2 saturation: 99%. Temp: 98.7 F. Pain level now: 12/08. --15:12 Jazmin Sanabria R.N. Departure time: 1512. --15:12 Jazmin Sanabria R.N. Locked/Released at 11/07/2016 15:12 by Jazmin Sanabria R.N.
--- NOTE | 2016-11-07 14:53 | ED NURSING NOTES ---
Clinical Report - Nurses [facility] [address] [place] [address] 11/07/2016 14:17 Patient: BECKI SHIN TRIAGE Triage time 14:25. Acuity: LEVEL 3. Chief Complaint: HEADACHE. --14:30 Jazmin Sanabria R.N. 14:24 11/07/16. BP: 123/74 taken on the right arm, while lying. HR: 83. RR: 22. O2 saturation: 95%. Temp: 98.7 F. Pain level now: 02/07. --14:30 Jazmin Sanabria R.N. Weight: 50.8 kg stated. Height/Length: 64 inches Per Patient. BMI: 19.2. --14:28 Jazmin Sanabria R.N. Medications Bactrim DS Oral. --14:27 Jazmin Sanabria R.N. Pyridium Oral. --14:27 Jazmin Sanabria R.N. Estradiol 2 mg q.d. . --14:27 Jazmin Sanabria R.N. Loratadine Oral. --14:27 Jazmin Sanabria R.N. Allergies No Known Drug Allergy. --15:12 Jazmin Sanabria R.N. History Arrived by private vehicle. Historian: patient. Primary physician (Becki Metzger). This started 2 days ago. She has had nausea, vomiting, nausea, vomiting and neck pain. She has had photophobia. ( Pt reports recent Dx of UTI and has been on Bactrim for 2 days.). No fever or blurred vision. SURGERY HX: Had hysterectomy. SOCIAL HX: Never smoker. No alcohol use or drug use. No infectious disease exposure. No known contact with a sick individual. --14:30 Jazmin Sanabria R.N. PROBLEMS: Migraines. --14:27 Jazmin Sanabria R.N. Interventions ID band on patient. --14:30 Jazmin Sanabria R.N. PHYSICAL ASSESSMENT ( Pt. reports her UTI symptoms are better, but not resolved completely.). GENERAL / NEURO / PSYCH: Alert. Oriented X 4. Appears in no acute distress. Speech within normal limits. HEENT: No facial asymmetry noted. Pupils equal, round and reactive to light. RESPIRATORY: Respirations not labored. GI / : Abdomen soft and nontender. SKIN: Skin is warm and dry. --14:31 Jazmin Sanabria R.N. NURSING PROGRESS NOTES Head of bed elevated. Reassurance given. Lights dimmed. Patient identifiers checked. Call light placed in reach. Patient waiting for evaluation. --14:31 Jazmin Sanabria R.N. 14:58 11/07/2016 Toradol (Ketorolac Tromethamine) IM 60 mg given. Given in the right gluteus mane. Allergies verified and confirmed 5 rights. --14:58 Jazmin Sanabria R.N. 14:58 11/07/2016 Benadryl (DiphenhydrAMINE HCl) IM 50 mg given. Given in the right gluteus mane. Allergies verified, confirmed 5 rights and sedative warning given to the patient and patient's family. --14:58 Jazmin Sanabria R.N. 14:59 11/07/2016 Reglan (Metoclopramide HCl) IM 10 mg given. Given in the left deltoid. Allergies verified and confirmed 5 rights. --14:59 Jazmin Sanabria R.N. ( Pt. tolerated IM medications well. Will wait 15 minutes before DC to ensure no med rxn). --14:59 Jazmin Sanabria R.N. DISPOSITION / DISCHARGE No learning barriers present. Discharge instructions provided and reviewed with the patient and spouse. Reviewed warnings (not to drive while taking sedating medications). Treatments reviewed. Patient and spouse verbalized understanding. Written instructions provided in Micronesian. The patient was discharged by the physician educational program assistant. She was discharged home and accompanied by spouse. She left the Emergency Department ambulatory and via private vehicle. Spouse driving. --15:12 Jazmin Sanabria R.N. 15:11 11/07/16. BP: 123/74. HR: 83. RR: 22. O2 saturation: 99%. Temp: 98.7 F. Pain level now: 12/08. --15:12 Jazmin Sanabria R.N. Departure time: 1512. --15:12 Jazmin Sanabria R.N. Locked/Released at 11/07/2016 15:12 by Jazmin Sanabria R.N.
--- NOTE | 2016-11-07 19:12 | ED MED RECONCILIATION SUMMARY ---
Patient: BECKI SHIN Medication Reconciliation Report VisitID: [id number] [address] [place] [address] 41y, F Registration Date/Time: 11/07/2016 Weight: 50.8 kg Height/Length: 64 in. BMI: 19.2 ALLERGIES: No Known Drug Allergy The patient's Home Medications are listed below: THE FOLLOWING MEDICATIONS NEED TO BE RECONCILED: Bactrim DS Oral Estradiol 2 mg q.d. Loratadine Oral Pyridium Oral The source(s) of the original Home Medication information: Not obtained. The following Medications were given to the patient in the Emergency Department: Toradol [IM] IM 60 mg, administered: 11/07/2016 2:58:00 PM Benadryl [IM] IM 50 mg, administered: 11/07/2016 2:58:00 PM Reglan [IM] IM 10 mg, administered: 11/07/2016 2:59:00 PM The following Medications were prescribed to the patient: Zofran 4 mg: Take 1 orally every six hours as needed for nausea/vomiting. Dispense ten (10). No refills. Substitution is permissible. -- Magnolia Prieto, A.R.N.P. Fioricet: Take 1-2 orally every 4 hours as needed for headache. Dispense twenty (20). No refills. Substitution is permissible. -- Magnolia Prieto A.R.N.P. Macrobid 100 mg: Take 1 capsule orally every 12 hours for 7 days. No refills. Substitution is permissible. -- Magnolia Prieto, A.R.N.P.
--- NOTE | 2016-11-07 19:12 | ED MAR SUMMARY ---
..... Medication Administration Record [facility] [address] [place] [address] Patient: BECKI SHIN Visit ID: [id number] 41y, F Weight: 50.8 kg Height/Length: 64 in BMI: 19.2 ALLERGIES: No Known Drug Allergy Given 14:58 11/07/2016 Jazmin Sanabria R.N. Medication Administered: TORADOL [IM] (KETOROLAC TROMETHAMINE), Dose: 60 mg IM. Medication Ordered: Toradol IM 60 mg (NOW). Given 14:58 11/07/2016 Jazmin Sanabria R.NKetan Medication Administered: BENADRYL [IM] (DIPHENHYDRAMINE HCL), Dose: 50 mg IM. Medication Ordered: Benadryl IM 50 mg (NOW). Given 14:59 11/07/2016 Jazmin Sanabria RKetanNKetan Medication Administered: REGLAN [IM] (METOCLOPRAMIDE HCL), Dose: 10 mg IM. Medication Ordered: - (Reglan 10mg im stat).
--- NOTE | 2016-11-07 19:12 | ED DISCHARGE INSTRUCTIONS ---
Patient: BECKI SHIN General Instructions [facility] VisitID: [id number] [address] [place] [address] 41y, F Registration Date/Time: 11/07/2016 Acute, poorly controlled migraine headache. INSTRUCTIONS Warnings: GENERAL WARNINGS: Return or contact your physician immediately if your condition worsens or changes unexpectedly, if not improving as expected, or if other problems arise. SPECIFICALLY, return if you develop fever, vomiting, numbness, weakness, difficulty thinking, visual disturbances, fainting or extreme fatigue. Prescription Medications: Zofran 4 mg: Take 1 orally every six hours as needed for nausea/vomiting. Dispense ten (10). No refills. Substitution is permissible. Fioricet: Take 1-2 orally every 4 hours as needed for headache. Dispense twenty (20). No refills. Substitution is permissible. Macrobid 100 mg: Take 1 capsule orally every 12 hours for 7 days. No refills. Substitution is permissible. Follow-up: Follow up with your doctor in about two days even if well. Call for an appointment. Summary of care provided to patient. Understanding of the discharge instructions verbalized by patient. ADDITIONAL INFORMATION Headache [Unspecified] The cause of your headache today is not clear, but it does not appear to be the sign of any serious illness. Under stress, some people tense the muscles of their shoulder, neck and scalp without knowing it. If this condition lasts long enough, a TENSION HEADACHE can occur. A MIGRAINE HEADACHE is caused by changes in blood flow to the brain. A migraine attack may be triggered by emotional stress, hormone changes during the menstrual cycle, oral contraceptives, alcohol use, certain foods containing tyramine, eye strain, weather changes, missing meals, lack of sleep or oversleeping. Other causes of headache include a viral illness with high fever, head injury with concussion, sinus, ear or throat infection, dental pain and TMJ (jaw joint) pain. More serious but less common causes of headache include stroke, brain hemorrhage, brain tumor, meningitis and encephalitis. Home Care: If you were given pain medicine for this headache, do not drive yourself home. Arrange for a ride, instead. When you get home, try to sleep. You should feel much better when you wake up. Apply heat to the back of your neck to relieve neck muscle spasm. Migraine headaches may respond best to an ice pack on the forehead or at the base of the skull. If you are having nausea or vomiting, follow a light diet until your headache is relieved. If you have a migraine type headache, use sunglasses when in the daylight or around bright indoor lighting until symptoms improve. Bright glaring light can worsen this kind of headache. Follow Up with your doctor if the headache is not better within the next 24 hours. If you have frequent headaches you should discuss a treatment plan with your primary care doctor. By being aware of the earliest signs of headache, and starting treatment right away, you may be able to stop the pain yourself. Get Prompt Medical Attention if any of the following occur: Worsening of your head pain or no improvement within 24 hours Repeated vomiting (unable to keep liquids down) Fever of 100.4F (38C) or higher, or as directed by your healthcare provider Stiff neck Extreme drowsiness, confusion or fainting Dizziness, vertigo (dizziness with spinning sensation) Weakness of an arm or leg or one side of the face Difficulty with speech or vision Ondansetron Oral disintegrating tablet What is this medicine? ONDANSETRON (on HAZEL se nawaf) is used to treat nausea and vomiting caused by chemotherapy. It is also used to prevent or treat nausea and vomiting after surgery. How should I use this medicine? These tablets are made to dissolve in the mouth. Do not try to push the tablet through the foil backing. With dry hands, peel away the foil backing and gently remove the tablet. Place the tablet in the mouth and allow it to dissolve, then swallow. While you may take these tablets with water, it is not necessary to do so. Talk to your manager fine dining regarding the use of this medicine in children. Special care may be needed. What side effects may I notice from receiving this medicine? Side effects that you should report to your doctor or health health care legal assistant as soon as possible: allergic reactions like skin rash, itching or hives, swelling of the face, lips, or tongue breathing problems dizziness fast or irregular heartbeat feeling faint or lightheaded, falls fever and chills swelling of the hands and feet tightness in the chest Side effects that usually do not require medical attention (report to your doctor or health health care legal assistant if they continue or are bothersome): constipation or diarrhea headache What may interact with this medicine? Do not take this medicine with any of the following medications: -apomorphine -cisapride -dofetilide -dronedarone -pimozide -thioridazine -ziprasidone This medicine may also interact with the following medications: -carbamazepine -phenytoin -rifampicin -tramadol -other medicines that prolong the QT interval (cause an abnormal heart rhythm) What if I miss a dose? If you miss a dose, take it as soon as you can. If it is almost time for your next dose, take only that dose. Do not take double or extra doses. Where should I keep my medicine? Keep out of the reach of children. Store between 2 and 30 degrees C (36 and 86 degrees F). Throw away any unused medicine after the expiration date. What should I tell my health care provider before I take this medicine? They need to know if you have any of these conditions: heart disease history of irregular heartbeat liver disease low levels of magnesium or potassium in the blood an unusual or allergic reaction to ondansetron, granisetron, other medicines, foods, dyes, or preservatives or trying to get breast-feeding What should I watch for while using this medicine? Check with your doctor or health health care legal assistant as soon as you can if you have any sign of an allergic reaction. Butalbital, Acetaminophen, Caffeine Oral tablet What is this medicine? ACETAMINOPHEN; BUTALBITAL; CAFFEINE (a set a JAYLON torres fen; byoo HUNTER bi hunter; KAF een) is a pain reliever. It is used to treat tension headaches. How should I use this medicine? Take this medicine by mouth with a full glass of water. Follow the directions on the prescription label. If the medicine upsets your stomach, take the medicine with food or milk. Do not take more than you are told to take. Talk to your manager fine dining regarding the use of this medicine in children. Special care may be needed. What side effects may I notice from receiving this medicine? Side effects that you should report to your doctor or health health care legal assistant as soon as possible: allergic reactions like skin rash, itching or hives, swelling of the face, lips, or tongue breathing problems confusion feeling faint or lightheaded, falls redness, blistering, peeling or loosening of the skin, including inside the mouth seizure stomach pain yellowing of the eyes or skin Side effects that usually do not require medical attention (report to your doctor or health health care legal assistant if they continue or are bothersome): constipation nausea, vomiting What may interact with this medicine? alcohol or medicines that contain alcohol antidepressants, especially MAOIs like isocarboxazid, phenelzine, tranylcypromine, and selegiline antihistamines benzodiazepines carbamazepine isoniazid medicines for pain like pentazocine, buprenorphine, butorphanol, nalbuphine, tramadol, and propoxyphene muscle relaxants naltrexone phenobarbital, phenytoin, and fosphenytoin phenothiazines like perphenazine, thioridazine, chlorpromazine, mesoridazine, fluphenazine, prochlorperazine, promazine, and trifluoperazine voriconazole What if I miss a dose? If you miss a dose, take it as soon as you can. If it is almost time for your next dose, take only that dose. Do not take double or extra doses. Where should I keep my medicine? Keep out of the reach of children. This medicine can be abused. Keep your medicine in a safe place to protect it from theft. Do not share this medicine with anyone. Selling or giving away this medicine is dangerous and against the law. Store at room temperature between 15 and 30 degrees C (59 and 86 degrees F). Keep container tightly closed. Protect from light. Throw away any unused medicine after the expiration date. What should I tell my health care provider before I take this medicine? They need to know if you have any of these conditions: drink more than 3 alcohol-containing drinks per day drug abuse or addiction heart or circulation problems kidney disease or problems going to the bathroom liver disease lung disease, asthma, or breathing problems porphyria an unusual or allergic reaction to acetaminophen, butalbital or other barbiturates, caffeine, other medicines, foods, dyes, or preservatives or trying to get breast-feeding What should I watch for while using this medicine? Tell your doctor or health health care legal assistant if your pain does not go away, if it gets worse, or if you have new or a different type of pain. You may develop tolerance to the medicine. Tolerance means that you will need a higher dose of the medicine for pain relief. Tolerance is normal and is expected if you take the medicine for a long time. Do not suddenly stop taking your medicine because you may develop a severe reaction. Your body becomes used to the medicine. This does NOT mean you are addicted. Addiction is a behavior related to getting and using a drug for a non-medical reason. If you have pain, you have a medical reason to take pain medicine. Your doctor will tell you how much medicine to take. If your doctor wants you to stop the medicine, the dose will be slowly lowered over time to avoid any side effects. You may get drowsy or dizzy when you first start taking the medicine or change doses. Do not drive, use machinery, or do anything that may be dangerous until you know how the medicine affects you. Stand or sit up slowly. Do not take other medicines that contain acetaminophen with this medicine. Always read labels carefully. If you have questions, ask your doctor or pharmacist. If you take too much acetaminophen get medical help right away. Too much acetaminophen can be very dangerous and cause liver damage. Even if you do not have symptoms, it is important to get help right away. Nitrofurantoin, Nitrofurantoin, Macrocrystalline Oral capsule What is this medicine? NITROFURANTOIN (tia kassie crisostomo AN toyn) is an antibiotic. It is used to treat urinary tract infections. How should I use this medicine? Take this medicine by mouth with a glass of water. Follow the directions on the prescription label. Take this medicine with food or milk. Take your doses at regular intervals. Do not take your medicine more often than directed. Do not stop taking except on your doctor's advice. Talk to your manager fine dining regarding the use of this medicine in children. While this drug may be prescribed for selected conditions, precautions do apply. What side effects may I notice from receiving this medicine? Side effects that you should report to your doctor or health health care legal assistant as soon as possible: allergic reactions like skin rash or hives, swelling of the face, lips, or tongue chest pain cough difficulty breathing dizziness, drowsiness fever or infection joint aches or pains pale or blue-tinted skin redness, blistering, peeling or loosening of the skin, including inside the mouth tingling, burning, pain, or numbness in hands or feet unusual bleeding or bruising unusually weak or tired yellowing of eyes or skin Side effects that usually do not require medical attention (report to your doctor or health health care legal assistant if they continue or are bothersome): dark urine diarrhea headache loss of appetite nausea or vomiting temporary hair loss What may interact with this medicine? antacids containing magnesium trisilicate probenecid quinolone antibiotics like ciprofloxacin, lomefloxacin, norfloxacin and ofloxacin sulfinpyrazone What if I miss a dose? If you miss a dose, take it as soon as you can. If it is almost time for your next dose, take only that dose. Do not take double or extra doses. Where should I keep my medicine? Keep out of the reach of children. Store at room temperature between 15 and 30 degrees C (59 and 86 degrees F). Protect from light. Throw away any unused medicine after the expiration date. What should I tell my health care provider before I take this medicine? They need to know if you have any of these conditions: anemia diabetes [id number] dehydrogenase deficiency kidney disease liver disease lung disease other chronic illness an unusual or allergic reaction to nitrofurantoin, other antibiotics, other medicines, foods, dyes or preservatives or trying to get breast-feeding What should I watch for while using this medicine? Tell your doctor or health health care legal assistant if your symptoms do not improve or if you get new symptoms. Drink several glasses of water a day. If you are taking this medicine for a long time, visit your doctor for regular checks on your progress. If you are diabetic, you may get a false positive result for sugar in your urine with certain brands of urine tests. Check with your doctor. You have been given the following additional information: Headache, Unspecified Ondansetron Oral disintegrating tablet Butalbital, Acetaminophen, Caffeine Oral tablet Nitrofurantoin, Nitrofurantoin, Macrocrystalline Oral capsule (Electronically signed by Magnolia Prieto A.R.N.P. 11/07/2016 19:11)
--- NOTE | 2016-11-07 19:12 | ED MAR SUMMARY ---
..... Medication Administration Record Located Within [facility] [address] [place] [address] Patient: BECKI SHIN Visit ID: [id number] 41y, F Weight: 50.8 kg Height/Length: 64 in BMI: 19.2 ALLERGIES: No Known Drug Allergy Given 14:58 11/07/2016 Jazmin Sanabria R.N. Medication Administered: TORADOL [IM] (KETOROLAC TROMETHAMINE), Dose: 60 mg IM. Medication Ordered: Toradol IM 60 mg (NOW). Given 14:58 11/07/2016 Jazmin Sanabria R.NKetan Medication Administered: BENADRYL [IM] (DIPHENHYDRAMINE HCL), Dose: 50 mg IM. Medication Ordered: Benadryl IM 50 mg (NOW). Given 14:59 11/07/2016 Jazmin Sanabria RKetanNKetan Medication Administered: REGLAN [IM] (METOCLOPRAMIDE HCL), Dose: 10 mg IM. Medication Ordered: - (Reglan 10mg im stat).
--- NOTE | 2016-11-07 19:12 | ED MED RECONCILIATION SUMMARY ---
Patient: BECKI SHIN Medication Reconciliation Report [facility] VisitID: [id number] [address] [place] [address] 41y, F Registration Date/Time: 11/07/2016 Weight: 50.8 kg Height/Length: 64 in. BMI: 19.2 ALLERGIES: No Known Drug Allergy The patient's Home Medications are listed below: THE FOLLOWING MEDICATIONS NEED TO BE RECONCILED: Bactrim DS Oral Estradiol 2 mg q.d. Loratadine Oral Pyridium Oral The source(s) of the original Home Medication information: Not obtained. The following Medications were given to the patient in the Emergency Department: Toradol [IM] IM 60 mg, administered: 11/07/2016 2:58:00 PM Benadryl [IM] IM 50 mg, administered: 11/07/2016 2:58:00 PM Reglan [IM] IM 10 mg, administered: 11/07/2016 2:59:00 PM The following Medications were prescribed to the patient: Zofran 4 mg: Take 1 orally every six hours as needed for nausea/vomiting. Dispense ten (10). No refills. Substitution is permissible. -- Magnolia Prieto, A.R.N.P. Fioricet: Take 1-2 orally every 4 hours as needed for headache. Dispense twenty (20). No refills. Substitution is permissible. -- Magnolia Prieto A.R.N.P. Macrobid 100 mg: Take 1 capsule orally every 12 hours for 7 days. No refills. Substitution is permissible. -- Magnolia Prieto, A.R.N.P.
== END 2016-11-07 15:12 | disposition home or self-care (01) ==
LOC: ED SRH 14:16
DX: G43.919 Migraine, unspecified, intractable, without status migrainosus (principal); Z79.899 Other long term (current) drug therapy; Z79.2 Long term (current) use of antibiotics